=== PATIENT | female | born 1970 | race Caucasian/White ===

== ENCOUNTER 2021-06-20 00:58 | Day surgery (SDC) | payer BC, SELFPAY ==
--- NOTE | 2021-06-11 13:48 | SUR.PREOP ---
Report to the Outpatient Waiting Room, entrance under the green pavilion located off [facility], at time 0600 on date 06/20/21. OR Time: 0730. - You and your visitor will be asked a series of questions to screen for COVID 19 for your protection. - A mask is required within the hospital. Preoperative COVID Testing Requirements: No COVID Test needed if: (proof is required; if not received patient will have Rapid Test prior to entry) - Patient has received COVID Vaccine at least 14 days prior to procedure date or - Patient has positive COVID test result within last 90 days of surgery date. COVID Test needed if above criteria is not met If not COVID vaccinated a COVID test must be conducted within 72 hours of surgery and patient is asked to isolate self from time of testing until procedure. You will go to the [facility] for your COVID testing. The [facility] is located at the corner of [address] [facility]. You will only be called if COVID results are positive and your surgeon may reschedule your elective surgery date. Patients may have clear liquids (water, carbonated beverages, clear teas, apple juice) until 3 hours prior to surgery with a maximum of 20 ounces. - NO CLEAR LIQUIDS AFTER 0430 - No food from midnight until time of surgery - Infants may have breast milk until 4 hours before surgery, formula 6 hours prior to surgery. - Children will be allowed to drink immediately following surgery. If applicable, please bring a bottle or sippy cup to assist with drinking. Juice, water, soda, and popsicles are readily available. For infants on formula, please bring formula the day of surgery. Pacifiers are allowed. Take the following medications with a SIP of water the morning of surgery: TOPIRAMATE Please no make-up, nail arabic, hairspray, perfume, deodorant, or body powder the day of surgery. No jewelry (including any body piercings) or valuables the day of surgery, leave them at home. Please take a shower or bath the night before, or the morning of, surgery with an antibacterial soap. Wear comfortable, loose fitting clothing. Children are encouraged to wear pajamas. - Jewelry must be removed prior to entering the operating room. Rings and piercings that are not removed may be cut off. - The hospital will not accept responsibility for valuables. - Please leave all valuables, including medications, at home the day of surgery. If you are going home after surgery, a licensed class a truck driver must drive you home. - NO public transportation without another adult. - We recommend that an adult stay with you for 24 hours following discharge. - We also recommend that you do not drive, make important decision, drink alcoholic beverages, or take any drugs that were not prescribed by your health care provider for at least 24 hours after your discharge time. For Pediatric surgeries, we recommend two adults accompany the child home (only one inside the building at this time). One visitor will be allowed to accompany the patient into the hospital. Patients visitor will be instructed to remain with patient at all times or leave the building. We will allow the visitor to come back to the postoperative area when patient is ready. Follow any additional instructions given to you from your surgeon. Telephone instructions given to PRICE GARNICA and asked if any additional questions and then verbalized understanding. Patient advised to call surgeon office or pre surgery nurse liaison [phone] if any additional questions.
[2021-06-11 14:04] VITALS: BMI 20.9
--- NOTE | 2021-06-19 07:52 | PM.IMHP ---
H&P: HPI History of Present Illness Date/Time: 06/19/21 07:52 50-year-old female status post hysterectomy admitted for tension-free vaginal tape secondary to stress urinary incontinence. She is patient complains of loss of urine with coughing laughing and sneezing. She has tried Kegel's without success. Risks and benefits were reviewed in great detail. She had all questions answered and asked to proceed Chief Complaint: Stress urinary incontinence Review of Systems Review of Systems: All systems reviewed & are unremarkable except as noted in HPI and below PMFSH Social History Social History Smoking status: Never smoker Living arrangements: with family Spiritual care concerns: No Meds Home Medications and Allergies Home Medications Medication Instructions Recorded Confirmed Type topiramate 25 mg PO DAILY 06/11/21 06/11/21 History topiramate 50 mg PO HS 06/11/21 06/11/21 History zolpidem 10 mg PO HS 06/11/21 06/11/21 History Allergies Allergy/AdvReac Type Severity Reaction Status Date / Time sumatriptan [From Imitrex] Allergy Severe Hypotension Verified 06/11/21 14:00 Penicillins Allergy Unknown Rash Verified 06/11/21 14:00 Exam Const: General: no acute distress Eyes: General: appearance normal, both eyes and all related structures Neck: Neck: supple and no JVD Thyroid: thyroid normal Resp: Effort & Inspection: normal respiratory effort Auscultation: clear to auscultation bilaterally Cardio: Rate: regular rate Rhythm: regular rhythm GI: Inspection: non-distended GI Palp: Yes Soft to palpation, No Tenderness to palpation present (GI) and No Guarding due to palpation present (GI) Auscultation: normal bowel sounds : External Female Exam: normal external appearance Speculum Exam - Vagina: normal appearance of the vagina Speculum Exam - Cervix: Cervix absent and Other cervical findings present (Loss of urine noted with Valsalva maneuver) Bimanual exam- vagina & uterus: uterus absent Bimanual Exam- Adnexa, other: no masses Skin: General skin exam: no rashes or lesions noted Extrem: General: normal to inspection and no edema Psych: Mental Status: mental status grossly normal Affect: normal affect Assessment and Plan Additional Plan Impression: Stress urinary incontinence Plan: Tension-free vaginal tape with cystoscopy.
[2021-06-20] VITALS (8 sets, daily range): BP systolic 84–104; BP diastolic 47–65; PULSE 44–63; RESP 10–16; TEMP 36.2–36.3; O2SAT 97–100
--- NOTE | 2021-06-20 06:56 | WPDANESEPPF ---
Anes - Initial Pre Proc Eval Procedure: Operation Date: 06/20/21 07:30 Proposed Procedures p Tension Vaginal Taping - Les Stallings MD Date/Time: 06/20/21 06:56 Surgeon: Les Stallings MD Pre Op Diagnosis: HERNESTO Patient Data Age: 50 Gender: F Height: 1.68 m Weight: 59.9 kg Allergies Allergy/AdvReac Type Severity Reaction Status Date / Time sumatriptan [From Imitrex] Allergy Severe Hypotension Verified 06/20/21 06:21 Penicillins Allergy Unknown Rash Verified 06/20/21 06:21 Home Medications Medication Instructions Recorded Confirmed Type topiramate 25 mg PO DAILY 06/11/21 06/20/21 History topiramate 50 mg PO HS 06/11/21 06/20/21 History zolpidem 10 mg PO HS 06/11/21 06/20/21 History Patient hx anesthesia problems: none Family hx anesthesia problems: none Results Review: All pre-operative results and documents have been reviewed as part of the pre-operative evaluation. PMFSH Past Medical History Medical History Hx of migraines Social History Social History Smoking status: Never smoker Living arrangements: with family Spiritual care concerns: No Anes - Eval Final PreProcedure Day of Procedure 06/20/21 06:56 Patient weight: normal Heart: regular rate and rhythm Lungs: clear to auscultation Airway: Mallampati scale class II Neurological: alert and oriented Last oral intake: >/= 8 hours ASA classification: II Emergent: no Anesthetic plan: proceed Anesthesia type and monitoring: general LMA and standard monitoring Results Review: All pre-operative results and documents have been reviewed as part of the pre-operative evaluation. Informed Consent: The patient's anesthetic plan and its attendant risks and benefits were discussed with the patient/family/POA. Questions were solicited and answers provided to the satisfaction of the patient/family/POA.
[2021-06-20] MEDS: LACTATED RINGERS 1,000 ML 30 ML IV CONT (07:03)
--- NOTE | 2021-06-20 07:17 | WPDHPUPDATE1 ---
History and Physical Update Update Date/Time: 06/20/21 07:17 History and Physical has been reviewed, including an updated exam of the patient. There are NO changes in the patient's condition. Risks, benefits, and alternatives have been discussed and questions answered. Patient agrees to proceed with procedure.
[2021-06-20] MEDS: ceFAZolin 2 GM/D5W 50 ML 2 GM/50 ML BAG IVPB (07:25)
--- NOTE | 2021-06-20 08:01 | W.PM.PROC2 ---
Procedure Note - Detailed Date of Procedure 06/20/21 Pre-op Diagnosis HERNESTO Post-op Diagnosis Same Procedure Performed Tension-free vaginal tape/cystoscopy Surgeon Les Stallings MD Anesthesia General Indications Is a 50-year-old status post hysterectomy with stress urinary incontinence and failed keep Koul exercises Findings Hyperactive urethra. Absent cervix and uterus. Description of Procedure The patient was prepped draped in the normal sterile fashion placed in dorsal lithotomy position. Under excellent general trach anesthesia weighted speculum placed in posterior fornix vagina. An 18 Citizen Of [place] catheter was placed in bladder draining clear urine. In mid urethral incision was made below the urethra and traverse to bluntly to the lateral bladder spaces bilaterally. The catheter guide was placed in the urethra was directed laterally. The TVT device was placed to at a 45 degree angle past the pubic bone and up through 30 degree angle through the skin and fascia. The urethra was retracted the opposite direction this was repeated on the right left retro pubic bladder space. The catheter was removed and a 70degree cystoscope was inserted no injury seen urine could be seen ejecting from each ureter. The 70degree scope was withdrawn and the catheter was then replaced. The TVT device was brought up to the tightness of an open pee on clamped. The plastic was removed and the tape cut at the suprapubic area. The vagina was closed with 0 Vicryl. Blood loss was estimated at25cc. All sponge, needle, instrument counts were correct. There were no immediate complications Implants TVT device Estimated Blood Loss 25 Drains No Packing No Pathology None sent Complications No immediate complications Condition Stable Disposition PACU
[2021-06-20] MEDS: fentaNYL CITRATE INJ (*CRX) 100 MCG/2 ML VIAL 25 MCG IV PUSH ×2 (08:42→08:46)
[2021-06-20] MEDS: oxyCODONE HCL (*CRX) 5 MG TAB IR PO (09:35)
== END 2021-06-20 09:57 | disposition home or self-care (01) ==
PROVIDERS: Visit Provider Obstetrics & Gynecology
PROC: 0TSD0ZZ Reposition Urethra, Open Approach (ICD-10-PCS; CPT 57288; principal; 2021-06-20 07:30)
DX: N39.3 Stress incontinence (female) (male) (principal)
CPT/HCPCS: 57288; 36415; 86850; 86900; 86901; A9270; C1771; J0690; J1100; J1885; J2001; J2250; J2405; J2704; J3010; J7030; J7120

== ENCOUNTER 2024-04-04 10:28 | Outpatient (CLI) | payer BC, SELFPAY | END 2024-04-04 10:29 | disposition home or self-care (01) | PROVIDERS: Visit Provider Obstetrics & Gynecology | DX: R10.2 Pelvic and perineal pain (principal) | CPT/HCPCS: 36415; 86850; 86900; 86901 ==

== ENCOUNTER 2024-04-07 02:30 | Day surgery (SDC) | payer BC, SELFPAY ==
[2024-03-30 16:31] VITALS: BMI 20.1
--- NOTE | 2024-03-30 16:56 | PC.NURSE ---
Report to the Outpatient Waiting Room, entrance under the green pavilion located off [facility], at 0800 on 04-07-24. Planned Procedure Time: 1000.? Time changes happen often and if your time is changed the preop area will call you the afternoon before. - You and your visitor will be asked to self-screen and do not enter if you have any COVID symptoms. Please call surgeon if you need to reschedule. - A mask is optional within the hospital at this time. Patients may have clear liquids (water, carbonated beverages, clear teas, apple juice) until 3 hours prior to surgery with a maximum of 20 ounces. 0700 - No food from midnight until time of surgery and no smoking. This includes no chewing gum, candy or mints. - Infants may have breast milk until 4 hours before surgery, infant formula 6 hours prior to surgery. - Children will be allowed to drink immediately following surgery.? If applicable, please bring a bottle or sippy cup to assist with drinking. Juice, water, soda, and popsicles are readily available.? For infants on formula, please bring formula the day of surgery.? Pacifiers are allowed. Take only the following medications with a SIP of water on the morning of surgery: None DO NOT STOP ANY OF YOUR OTHER PRESCRIPTION MEDICATIONS PRIOR TO SURGERY EXCEPT THE FOLLOWING Medications to discontinue per physician: vitamins and supplements Date to take last dose: 04-04-24 Please no make-up, nail comoran, hairspray, perfume, deodorant, or body powder the day of surgery.? No jewelry (including any body piercings) or valuables the day of surgery, leave them at home.? Please take a shower or bath the night before, or the morning of, surgery with an antibacterial soap.? Wear comfortable, loose fitting clothing.? Children are encouraged to wear pajamas. - Jewelry must be removed prior to entering the operating room.? Rings and piercings that are not removed may be cut off. - The hospital will not accept responsibility for valuables.? - Please leave all valuables, including medications, at home the day of surgery. If you are going home after surgery, a licensed emergency vehicle driver must drive you home.? - NO public transportation without another adult if you receive anesthesia. - We recommend that an adult stay with you for 24 hours following discharge. - We also recommend that you do not drive, make important decision, drink alcoholic beverages, or take any drugs that were not prescribed by your health care provider for at least 24 hours after your discharge time. For Pediatric surgeries, we recommend two adults accompany the child home. Follow any additional instructions given to you from your surgeon. Telephone instructions given to Nimco Posey and asked if any additional questions and then verbalized understanding. Patient advised to call surgeon office or pre surgery nurse liaison [phone] if any additional questions.
--- NOTE | 2024-04-06 07:25 | PM.IMHP ---
H&P: HPI History of Present Illness Date/Time: 04/06/24 07:25 Chief Complaint: complex right ovarian cyst Narrative: 53-year-old female status post hysterectomy with a complex right ovarian cyst admitted for laparoscopic right salpingo-oophorectomy risks and benefits reviewed including not exclusive of , aspiration pneumonia bleeding, transfusion, perforation injury to bowel, bladder, ureters, or other internal organs with need for open laparotomy. She received the [employer] handout entitled last laparoscopy. She had all questions answered. She asked to proceed. Review of Systems Review of Systems: All systems reviewed & are unremarkable except as noted in HPI and below PMFSH Past Medical History Medical History Hx of migraines Social History Social History Smoking status: Never smoker Second hand tobacco smoke exposure: No Alcohol intake: current Alcohol use details: glass of wine every once in awhile Substance use: never Substance use type: does not use Living arrangements: alone Spiritual care concerns: No Meds Home Medications and Allergies Home Medications ?Medication ?Instructions ?Recorded ?Confirmed ?Type topiramate 50 mg tablet 50 mg PO BID 06/11/21 03/30/24 History zolpidem 10 mg tablet 10 mg PO HS 06/11/21 03/30/24 History alprazolam 0.25 mg tablet 0.5 mg PO HS PRN anxiety 03/30/24 03/30/24 History citalopram 20 mg tablet 20 mg PO HS anxiety 03/30/24 03/30/24 History cyanocobalamin (vitamin B-12) 1,000 mcg IM MONTHLY 03/30/24 03/30/24 History 1,000 mcg/mL injection solution linaclotide 145 mcg capsule 145 mcg PO HS 03/30/24 03/30/24 History (Linzess) olanzapine 2.5 mg tablet 2.5 mg PO QPM 03/30/24 03/30/24 History potassium chloride 10 mEq 30 meq PO DAILY 03/30/24 03/30/24 History capsule,extended release Allergies Allergy/AdvReac Type Severity Reaction Status Date / Time sumatriptan (From Imitrex) Allergy Intermediate Hypotension Verified 03/30/24 16:12 Penicillins Allergy Mild Rash Verified 03/30/24 16:12 Milk Containing Products AdvReac Other Verified 03/30/24 16:12 (Dairy) Exam Const: General: cooperative, healthy appearing and comfortable Nutritional Appearance: average body habitus Orientation/consciousness: oriented to person, oriented to place and oriented to time Resp: Effort & Inspection: normal respiratory effort Cardio: Rate: regular rate Rhythm: regular rhythm Heart sounds: S1 normal heart sound present and S2 normal heart sound present GI: Inspection: normal to inspection Auscultation: normal bowel sounds : External Female Exam: normal external appearance Speculum Exam - Vagina: normal appearance of the vagina Speculum Exam - Cervix: Cervix absent Bimanual exam- vagina & uterus: uterus absent Bimanual Exam- Adnexa, other: tender on the right Assessment and Plan Assessment and plan (1) Right ovarian cyst: Code(s): N83.201 - Unspecified ovarian cyst, right side Status: Acute Plan proceed with laparoscopic right salpingo-oophorectomy
[2024-04-07] VITALS (11 sets, daily range): BP systolic 92–115; BP diastolic 50–82; PULSE 51–71; RESP 10–18; TEMP 36.5–36.8; O2SAT 96–100; BMI 20.6
--- NOTE | 2024-04-07 02:25 | WPDHPUPDATE1 ---
History and Physical Update Update Date/Time: 04/07/24 02:25 History and Physical has been reviewed, including an updated exam of the patient. There are NO changes in the patient's condition. Risks, benefits, and alternatives have been discussed and questions answered. Patient agrees to proceed with procedure.
--- NOTE | 2024-04-07 07:01 | WPDANESEPPF ---
Anes - Initial Pre Proc Eval Procedure: Operation Date: 04/07/24 10:00 Proposed Procedures p Laparoscopic Right Salpingo-oophorectomy - Les Stallings MD Date/Time: 04/07/24 07:01 Surgeon: Les Stallings MD Pre Op Diagnosis: Pelvic Pain, Right Ovarian Cyst Patient Data Age: 53 Gender: F Height: 1.68 m Weight: 56.7 kg Allergies Allergy/AdvReac Type Severity Reaction Status Date / Time sumatriptan (From Imitrex) Allergy Intermediate Hypotension Verified 03/30/24 16:12 Penicillins Allergy Mild Rash Verified 03/30/24 16:12 Milk Containing Products AdvReac Other Verified 03/30/24 16:12 (Dairy) Home Medications ?Medication ?Instructions ?Recorded ?Confirmed ?Type topiramate 50 mg tablet 50 mg PO BID 06/11/21 03/30/24 History zolpidem 10 mg tablet 10 mg PO HS 06/11/21 03/30/24 History alprazolam 0.25 mg tablet 0.5 mg PO HS PRN anxiety 03/30/24 03/30/24 History citalopram 20 mg tablet 20 mg PO HS anxiety 03/30/24 03/30/24 History cyanocobalamin (vitamin B-12) 1,000 mcg IM MONTHLY 03/30/24 03/30/24 History 1,000 mcg/mL injection solution linaclotide 145 mcg capsule 145 mcg PO HS 03/30/24 03/30/24 History (Linzess) olanzapine 2.5 mg tablet 2.5 mg PO QPM 03/30/24 03/30/24 History potassium chloride 10 mEq 30 meq PO DAILY 03/30/24 03/30/24 History capsule,extended release hydrocodone 5 mg-acetaminophen 325 1 tablet PO Q4H PRN pain #20 tabs 04/07/24 Rx mg tablet Patient hx anesthesia problems: none Family hx anesthesia problems: none Results Review: All pre-operative results and documents have been reviewed as part of the pre-operative evaluation. [facility] Past Medical History Medical History (Updated 04/07/24 @ 07:02 by Gamaliel Obrien DO) Anxiety Endometriosis Hx of migraines Surgical History Surgical History (Updated 04/07/24 @ 07:02 by Gamaliel J. Luchtefeld, DO) History of hysterectomy History of cholecystectomy Social History Social History Smoking status: Never smoker Second hand tobacco smoke exposure: No Alcohol intake: current Alcohol use details: glass of wine every once in awhile Substance use: never Substance use type: does not use Living arrangements: alone Spiritual care concerns: No Anes - Eval Final PreProcedure Day of Procedure 04/07/24 07:01 Patient weight: normal Heart: regular rate and rhythm Lungs: clear to auscultation and normal air movement Airway: Mallampati scale class III Neurological: alert and oriented Last oral intake: >/= 8 hours ASA classification: II Emergent: no Anesthetic plan: proceed Anesthesia type and monitoring: general ETT and standard monitoring Results Review: All pre-operative results and documents have been reviewed as part of the pre-operative evaluation. Informed Consent: The patient's anesthetic plan and its attendant risks and benefits were discussed with the patient/family/POA. Questions were solicited and answers provided to the satisfaction of the patient/family/POA.
[2024-04-07] MEDS: LACTATED RINGERS 1,000 ML 30 ML IV CONT ×2 (08:15→09:29)
[2024-04-07] MEDS: ACETAMINOPHEN 500 MG TABLET 1000 MG PO (08:21)
[2024-04-07] MEDS: KETOROLAC 15 MG/ML VIAL (*BKC) IV PUSH (08:21)
--- NOTE | 2024-04-07 09:11 | W.PM.PROC2 ---
Procedure Note - Detailed Date of Procedure 04/07/24 Pre-op Diagnosis Pelvic Pain, Right Ovarian Cyst Post-op Diagnosis Same Procedure Performed Laparoscopic right salpingo-oophorectomy Surgeon Les Stallings MD Anesthesia General Indications 53-year-old female status post hysterectomy with the right ovarian cyst Findings Uterus and what appeared to be the left tube and ovary were absent. A right ovarian cyst was seen that was adhesed to lateral sidewall Description of Procedure The patient was prepped draped in normal sterile fashion placed in the dorsal lithotomy position. Under excellent general trach anesthesia weighted speculum placed in posterior fornix vagina. Sponge stick placed in vagina and the the bladder drained clear urine the weighted speculum was removed the gloves were changed. A supraumbilical incision made the Veress needle passed in the abdomen. Abdomen filled with CO2 gas [id number]. The 5mm trocar advanced under direct visualization assuring no injury patient placed in Trendelenburg and a suprapubic incision made the 5mm trocar advanced under direct visualization assuring injury a right lower quadrant incision made the 8mm trocar advanced under direct visualization assuring no injury the right fallopian tube and ovary were adhesed to the lateral sidewall the infundibulopelvic structure was skeletonized clamping burning cutting and then placing this in an Endo-Catch removed through the right lower quadrant the appendix appeared within normal limits and no other abnormalities were seen. The lower sites removed. The gas removed from the abdomen. The upper site removed. Incisions closed with 4 Monocryl patient went recovery in satisfactory condition. All sponge, needle, instrument counts were correct. There were no immediate complications Estimated Blood Loss 5 Drains No Packing No Pathology Yes Complications No immediate complications Condition Stable Disposition PACU
[2024-04-07] MEDS: fentaNYL CITRATE INJ (*CRX) 100 MCG/2 ML VIAL 25 MCG IV PUSH ×6 (09:40→10:43)
[2024-04-07] MEDS: oxyCODONE HCL (*CRX) 5 MG TAB IR PO (11:14)
== END 2024-04-07 12:13 | disposition home or self-care (01) ==
PROVIDERS: Visit Provider Obstetrics & Gynecology
PROC: (CPT 49320; principal; 2024-04-07 10:00)
DX: N83.201 Unspecified ovarian cyst, right side (principal)
CPT/HCPCS: 58661; 88305; A9270; J0330; J1100; J1885; J2003; J2250; J2405; J2704; J3010; J7120